=== PATIENT | female | born 1985 | race Caucasian/White ===

== ENCOUNTER 2023-07-19 10:36 | Outpatient (AMB) | payer BC, SELFPAY ==
--- NOTE | 2023-07-19 10:37 | A.OFFVIS_ITS ---
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 Also has had her period twice in April. 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 She did have 1 abnormal sent Pap smear 2017 or and the 1 after that was normal. She had 2 children here [facility]. She is healthy. She normally has very regular cycles but in April she had a period Towards the beginning of the month and then she had an abnormal bleeding after sex and bled and it was a couple of weeks after the 1st. Then her periods return to normal in May. She feels she is due to start her period any day now. She is wondering about resuming control pills she had been on control pills in the past and was not thrilled with them but since she has always been very regular this abnormal bleeding through her off and she is wondering if she can depend on her cycles for prevention anymore. She will be making a primary care appointment to she is healthy and exercises and takes care of herself. She has no worries about STDs and declines testing though I did recommend we do the vaginal testing because of the bleeding. [facility] Social History (Updated 07/19/23 @ 10:45 by MILADIS Swenson) Alcohol intake: current Alcohol intake frequency: a few times a month Female Reproductive History Menstrual Age of Menarche: 12 Duration of menses: 3-5 days Date of last menstrual period: 06/23/23 control method: none Total pregnancies: 3 Full term: 2 Number of Living Children: 2 Ab induced: 1 Date of last pap smear: 06/06/19 (negative) History of abnormal pap smear: Yes (2018 ASCUS +HPV) Physical Exam Vital Signs: Last Vital Signs BP 112/80 07/19/23 10:38 BMI result Body Mass Index 23.5 Const General: healthy appearing, comfortable, no acute distress, well developed and alert Nutritional Appearance: average body habitus Orientation/consciousness: patient oriented x3 Limitations: no limitations HEENT Head: Yes normocephalic Neck Neck: Yes normal visual inspection Chest Chest palpation & inspection: normal inspection of the chest Breast/axilla inspection: normal inspection of the breasts and normal inspection of the axillae Breast/axilla palpation: normal palpation of the breasts and normal palpation of the axillae Resp Effort & Inspection: normal respiratory effort GI Inspection: Yes normal to inspection, No Abdominal wall edema and No distended Palpation (GI): Soft to palpation and nontender Other: External exam within normal limits. Vagina pink and moist cervix multiparous long close thick firm mobile uterus slightly difficult to palpate cervix normally friable with Pap. No abnormal discharge but testing done just because of history of bleeding. General: Yes bladder normal to palpation External Female Exam: normal external appearance and normal appearance of the urethra Speculum Exam - Vagina: normal appearance of the vagina, normal palpation and normal vaginal discharge Speculum Exam - Cervix: normal appearance of the cervix, normal palpation and nontender Bimanual exam- vagina & uterus: normal bimanual exam, normal palpation, uterine size normal, bladder normal to palpation, consistency normal, normal palpation, uterine mobility normal, uterine shape normal, No Cervical tenderness present, non-tender and no cervical motion tenderness Bimanual Exam- Adnexa, other: normal adnexae, no masses, normal and No adnexal tenderness Neuro General: patient oriented x3 Assessment & Plan Assessment & Plan (1) Abnormal uterine bleeding (AUB): Code(s): N93.9 - Abnormal uterine and vaginal bleeding, unspecified (2) Hx of abnormal cervical Pap smear: Code(s): Z87.42 - Personal history of other diseases of the female genital tract (3) Screen for sexually transmitted diseases: Code(s): Z11.3 - Encounter for screening for infections with a predominantly sexual mode of transmission (4) control counseling: Code(s): Z30.09 - Encounter for other general counseling and advice on contraception Plan -----Discussed in this visit the following: healthy balanced diet, regular and consistent exercise, getting recommended health screens, doing the best she can for her particular health concerns, kegel exercises, pap smear screening and followup recommendations, mammography screening and SBE, normal changes in cycles in her life stage--- .----I reviewed available options for Control Methods and their associated side effect profiles. In particular, we discussed the method most of interest to her. We discussed combination control pills and progestin only control pills and I reviewed way we typically do not start combination OCPs after age 35 though if she had been on them we would continue her on them. Discussed the slightly increased risks of thromboembolic events with pills in general but especially with combination pills. She is elected to this try the norethindrone only control pills. Discussed their limitations and that she would start them at the beginning of the next period which she feels should be coming soon. Also discussed ordering a TSH and CBC cbc for baseline and TSH just because of her history of the 1 abnormal bleed. Will order a pelvic ultrasound to see if there is any structural issue that could have explained the bleeding. Discussed that sometimes there may have been a cervical polyp or something that bled after intercourse and that may or may not even seen on ultrasound but we will see what shows up. Discussed that there can be many reasons why somebody may have 1 episode of abnormal bleeding but we will start evaluation with an ultrasound and labs and there may not need to to be more invasive testing after that. She also had noted increased facial itching around the time that she had the abnormal bleeding and she was trying to figure out what that might of been about she does have a history of psoriasis when she was younger but has not had anything active in recent time the time of the year it happened there was a lot of flooding and fungus is in the air because of the increased humidity but we could not figure out a correlation clearly at this visit. Will see her in 3 months to see how she is doing on the pills and to review the ultrasound and labs with her. Orders: Orders Bacterial Vaginosis Panel Today Z20.2 - Contact with and (suspected) exposure to infections with a predominantly sexual mode of transmission CT NG by PCR Today Z20.2 - Contact with and (suspected) exposure to infections with a predominantly sexual mode of transmission Pap Smear Today Z12.4 - Encounter for screening for malignant neoplasm of cervix US pelvic and transvaginal Today N93.9 - Abnormal uterine and vaginal bleeding, unspecified, Z11.3 - Encounter for screening for infections with a predominantly sexual mode of transmission, Z30. - Encounter for other general counseling and advice on contraception, Z87.42 - Personal history of other diseases of the female genital tract Medications: New norethindrone (contraceptive) 0.35 mg PO DAILY 84 tabs 4RF Coding Level of Care Code New Pt Prev Care 18-39yr([id number] Diagnoses Abnormal uterine bleeding (AUB) N93.9 Hx of abnormal cervical Pap smear Z87.42 Screen for sexually transmitted diseases Z11.3 control counseling Z30.09
[2023-07-19 10:38] VITALS: BP 112/80; BMI 23.5
== END 2023-07-19 11:31 | disposition home or self-care (01) ==
PROVIDERS: Visit Provider Advanced Practice Midwife
DX: Z01.419 Encounter for gynecological examination (general) (routine) without abnormal findings (principal); N93.9 Abnormal uterine and vaginal bleeding, unspecified; Z87.42 Personal history of other diseases of the female genital tract
CPT/HCPCS: 99385

== ENCOUNTER 2023-07-19 10:36 | Outpatient (REF) | payer BC, SELFPAY ==
[2023-07-19 15:37] LABS: CT PCR NOT DETECTED (Not Detect.); NG PCR NOT DETECTED (Not Detect.)
[2023-07-20 13:40] LABS: BV Int Neg Control Negative (Negative); BV Int Pos Control Positive (Positive)
[2023-07-22 21:13] LABS: HPV mRNA E6/E7 rflx Not Detected (Not Detected)
== END 2023-07-19 10:37 | disposition home or self-care (01) ==
LOC: HO.LNP 10:36
PROVIDERS: Visit Provider Advanced Practice Midwife
DX: Z12.4 Encounter for screening for malignant neoplasm of cervix (principal); Z11.51 Encounter for screening for human papillomavirus (HPV); Z20.2 Contact with and (suspected) exposure to infections with a predominantly sexual mode of transmission; N93.9 Abnormal uterine and vaginal bleeding, unspecified; Z87.42 Personal history of other diseases of the female genital tract
CPT/HCPCS: 0353U; 87480; 87510; 87624; 87660; 88142

== ENCOUNTER 2023-07-22 12:56 | Outpatient (REF) | payer BC, SELFPAY ==
--- NOTE | ~2023-07-22 | US_ITS ---
EXAMINATION: US PELVIS CLINICAL INFORMATION: Abnormal uterine bleeding. Last menstrual period 07/21/2023. COMPARISON: None available. TECHNIQUE: Ultrasound of the pelvis is performed using both transabdominal and transvaginal transducers along with Doppler. Transvaginal imaging is performed due to inadequate visualization transabdominally. FINDINGS: UTERUS: The uterus is anteverted, heterogeneous and measures 8.5 x 3.8 x 4.9 cm. No discrete fibroids are identified. The double wall endometrial thickness is 6 mm. Limited visualization of the endometrium due to uterine heterogeneity. Right ovary measures 2.9 x 2.5 x 2.2 cm, volume 8.7 mL and is unremarkable. The left ovary measures 3.7 x 2.6 x 1.9 cm, volume 9.5 mL and is unremarkable. Bilateral prominence of the venous structures in the pelvis concerning for pelvic congestion. US/US pelvic and transvaginal IMPRESSION: 1. Bilateral prominence of the venous structures in the pelvis concerning for pelvic congestion. 2. The double wall endometrial thickness is 6 mm. Limited visualization of the endometrium due to uterine heterogeneity.
== END 2023-07-22 12:57 | disposition home or self-care (01) ==
LOC: HO.HMGCX 12:56
PROVIDERS: PCP Family Medicine; Visit Provider Advanced Practice Midwife
DX: N93.9 Abnormal uterine and vaginal bleeding, unspecified (principal); Z87.42 Personal history of other diseases of the female genital tract
CPT/HCPCS: 76830; 76856

== ENCOUNTER 2023-08-05 09:33 | Outpatient (AMB) | payer BC, SELFPAY ==
[2023-08-05 09:43] VITALS: BP 118/70; BMI 23.7
--- NOTE | 2023-08-05 09:43 | A.OFFVIS_ITS ---
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 Her periods have been normal since she has not started the control pills yet and she is thinking about waiting till her next period comes but she thinks she will start them. She has not been having any problems. She did not go to the lab yet but as it turns out it is just as well because the order got her raced from the system. She will be making a primary care appointment soon and is so she plans on getting her blood work done with her primary care provider as part of her annual. [facility] Social History Alcohol intake: current Alcohol intake frequency: a few times a month Female Reproductive History Menstrual Age of Menarche: 12 Duration of menses: 3-5 days Date of last menstrual period: 07/21/23 control method: none Physical Exam Vital Signs: Last Vital Signs BP 118/70 08/05/23 09:43 BMI result Body Mass Index 23.7 Results Reviewed Results Reviewed: Patient: Vicky Benavides MR#: [id number] : 1985 Acct:[id number] Age/Sex: 38 / F ADM Date: 07/22/23 Loc: HO.[facility]GCX Attending Dr: Kristi Burroughs CNM Ordering Physician: Kristi Burroughs CNM Date of Service: 07/22/23 Procedure(s): US pelvic and transvaginal Accession Number(s): [id number] cc: Daniella Carroll; Kristi Burroughs CNM~ EXAMINATION: US PELVIS CLINICAL INFORMATION: Abnormal uterine bleeding. Last menstrual period 07/21/2023. COMPARISON: None available. TECHNIQUE: Ultrasound of the pelvis is performed using both transabdominal and transvaginal transducers along with Doppler. Transvaginal imaging is performed due to inadequate visualization transabdominally. FINDINGS: UTERUS: The uterus is anteverted, heterogeneous and measures 8.5 x 3.8 x 4.9 cm. No discrete fibroids are identified. The double wall endometrial thickness is 6 mm. Limited visualization of the endometrium due to uterine heterogeneity. Right ovary measures 2.9 x 2.5 x 2.2 cm, volume 8.7 mL and is unremarkable. The left ovary measures 3.7 x 2.6 x 1.9 cm, volume 9.5 mL and is unremarkable. Bilateral prominence of the venous structures in the pelvis concerning for pelvic congestion. US/US pelvic and transvaginal IMPRESSION: 1. Bilateral prominence of the venous structures in the pelvis concerning for pelvic congestion. 2. The double wall endometrial thickness is 6 mm. Limited visualization of the endometrium due to uterine heterogeneity. Dictated By: Leela Lauren MD Signed By: <Electronically signed by Leela Lauren MD in OV> 07/26/23 0627 DD/ 1323 Name: Vicky Benavides Age/Sex: 38/F Attending: Kristi Burroughs CNM : 1985 Submitted by: Kristi Burroughs CNM Copies to: MR #: [id number] Status: DEP REF Collected: 07/19/23 Location: [facility] Received: 07/20/23 Interpretation Satisfactory for evaluation. Negative for intraepithelial lesion or malignancy. HPV mRNA E6/E7: NOT DETECTED This assay detects E6/E7 viral messenger RNA (mRNA) from 14 high-risk HPV types (16, 18, 31, 33, 35, 39, 45, 51, 52, 56, 58, 59, 66, 68) HPV testing performed by [facility], [place], [place]. See reference laboratory pion of the EMR for entire report. Clinical Information LMP: 06/23/23 Previous PAP test: 06/06/19, WNL Material Received ThinPrep-Cervical Electronically Signed By: VELMA Gaspar (ASCP) 07/26/23 1043 The Pap Test is a screening procedure with the inherent possibility of both false negative and false positive results. Results should be interpreted in the context of historic and current clinical findings. Reliability of the Pap Test is enhanced by performing the test on a regular repetitive basis. Patient: Vicky Benavides Age/Sex: 38/F MR#: [id number] Page 1 of 1 Assessment & Plan Assessment & Plan (1) control counseling: Code(s): Z30.09 - Encounter for other general counseling and advice on contraception (2) Hx of abnormal cervical Pap smear: Comment: 07/19/2023 Pap is negative with negative HPV. Code(s): Z87.42 - Personal history of other diseases of the female genital tract (3) Encounter to discuss test results: Code(s): Z71.2 - Person consulting for explanation of examination or test findings Plan Is here to review her ultrasound. Her periods have been normal since she has not started the control pills yet and she is thinking about waiting till her next period comes but she thinks she will start them. She has not been having any problems. She did not go to the lab yet but as it turns out it is just as well because the order got her raced from the system. She will be making a primary care appointment soon and is so she plans on getting her blood work done with her primary care provider as part of her annual. I reviewed her ultrasound in detail. She has a family history of varicose veins so the prominent veins makes sense. They are not causing her any problems. Reviewed how to take the pills 1 pill every day at the same time every day and she will see how she feels with them if in the meantime she sees her primary care provider and it turns out to be around the 3 month pill check time she can cancel the visit here as she can discussed those issues with her primary and that would be fine and she can also get her CBC and TSH as part of her regular annual blood work with her primary as well. Her Pap smear was normal as well and we will see her in 1 year. 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 Coding Level of Care Code Est Pt Level 3 (85828) Diagnoses control counseling Z30.09 Hx of abnormal cervical Pap smear Z87.42 Encounter to discuss test results Z71.2
== END 2023-08-05 10:12 | disposition home or self-care (01) ==
LOC: HO.HWS 09:33
PROVIDERS: PCP Family Medicine; Visit Provider Advanced Practice Midwife
DX: Z30.09 Encounter for other general counseling and advice on contraception (principal); Z87.42 Personal history of other diseases of the female genital tract; Z71.2 Person consulting for explanation of examination or test findings
CPT/HCPCS: 99213

== ENCOUNTER → 2023-08-05 09:33 | Outpatient (BNVA) | payer BC, SELFPAY | PROVIDERS: PCP Family Medicine; Visit Provider Advanced Practice Midwife ==